=== PATIENT | female | born 1995 | race Two or more races ===

== ENCOUNTER 2024-04-30 07:57 | Inpatient (IN) | payer OTHER ==
[2024-04-30] MEDS: ELECTROLYTE-148 SOLN 1,000 ML IV SCH ×2 (09:30→16:00)
[2024-04-30 09:43] LABS: BASO % 0.3 % (0-2.0); EOS % 2.4 % (0-4.5); HEMATOCRIT 36.4 % (32.4-45.2); HEMOGLOBIN 12.5 GM/dL (10.7-15.3); LYMPH % 18.6 % (8-40); MCHC 34.3 g/dl (32.0-36.0); MEAN CELL VOLUME 87.6 fl (80-96); MEAN PLT VOLUME 8.8 fl (7.5-11.1); MONO % 8.4 % (3.8-10.2); NEUT % 70.3 % (42.8-82.8); PLATELET COUNT 185 10^3/uL (134-434); RBC 4.16 M/mm3 (3.60-5.2); WHITE BLOOD COUNT 9.3 K/mm3 (4.0-10.0)
[2024-04-30 09:45] LABS: INR 0.95 (0.83-1.09); PROTHROMBIN TIME (PATIENT) 10.9 SEC (9.7-13.0)
[2024-04-30 09:48] LABS: ACTIVATED PTT 25.6 SECONDS (25.2-36.5)
[2024-04-30] MEDS: OXYTOCIN 30 UNITS in 0.9% NS 30 UNIT/500 ML INFUS.BAG IVPB SCH (10:00)
[2024-04-30] MEDS ORDERED: OXYTOCIN 30 UNITS in 0.9% NS 30 UNIT/500 ML INFUS.BAG IVPB ONE (10:02)
[2024-04-30 10:20] VITALS: BMI 32.4
[2024-04-30 10:49] LABS: CREATININE 0.4 mg/dL (0.55-1.3); POTASSIUM 4.3 mmol/L (3.5-5.1)
[2024-04-30 10:50] LABS: CALCIUM 9.1 mg/dL (8.5-10.1)
[2024-04-30 11:20] LABS: BLOOD UREA NITROGEN 10.7 mg/dL (7-18)
[2024-04-30 12:14] LABS: SYPHILIS W/ RPR CONF NON-REACTIVE (NONREACTIVE)
[2024-04-30 12:41] LABS: HIV INTERPRETATION NEGATIVE (NEGATIVE)
[2024-04-30] MEDS ORDERED: PROMETHAZINE HCL 25 MG/1 ML VIAL IVPB ONE (13:36)
[2024-04-30] MEDS ORDERED: NALOXONE HCL 0.4 MG/ML VIAL IVPUSH PRN (14:56)
[2024-04-30] MEDS ORDERED: FENTANYL/BUPIVACAINE/NS/PF - PCEA - 50 ML DISP.SYRIN EP ONE ×3 (15:05→22:13)
[2024-04-30] MEDS: FENTANYL/BUPIVACAINE/NS/PF - PCEA - 50 ML DISP.SYRIN EP SCH (15:30)
[2024-04-30] MEDS ORDERED: OXYTOCIN 20 UNITS in 0.9% NS 20 UNIT/1,000 ML INFUS.BAG IV ONE (23:43)
[2024-05-01] MEDS ORDERED: BISACODYL 10 MG SUPP.RECT RC PRN (00:05)
[2024-05-01] MEDS ORDERED: WITCH HAZEL 50% (TUCKS) 40 PAD/JAR PAD TP PRN (00:05)
[2024-05-01] MEDS ORDERED: oxyCODONE HCL 5 MG TABLET PO PRN (00:05)
[2024-05-01] MEDS ORDERED: METHYLERGONOVINE MALEATE 0.2 MG/1 ML AMP IM PRN (00:05)
[2024-05-01] MEDS: BUTORPHANOL TARTRATE 1 MG/ML VIAL IVPB ONE (03:40)
[2024-05-01] MEDS: OXYTOCIN 20 UNITS in 0.9% NS 20 UNIT/1,000 ML INFUS.BAG IV SCH (03:45)
[2024-05-01 06:47] LABS: BASO % 0.3 % (0-2.0); EOS % 0.1 % (0-4.5); HEMATOCRIT 34.9 % (32.4-45.2); HEMOGLOBIN 11.8 GM/dL (10.7-15.3); MCH 29.7 pg (25.7-33.7); MCHC 33.9 g/dl (32.0-36.0); MEAN CELL VOLUME 87.4 fl (80-96); MEAN PLT VOLUME 8.4 fl (7.5-11.1); MONO % 5.6 % (3.8-10.2); PLATELET COUNT 195 10^3/uL (134-434); RBC 3.99 M/mm3 (3.60-5.2); RDW 14.6 % (11.6-15.6); WHITE BLOOD COUNT 18.2 K/mm3 (4.0-10.0)
[2024-05-01] MEDS: PRENATAL VITAMINS W/ FOLIC ACID TABLET (FP) PO SCH (10:02)
[2024-05-01] MEDS: IBUPROFEN 600 MG TABLET (FP) PO PRN (10:02)
[2024-05-01] MEDS: FERROUS SO4 325 MG TABLET (FP) PO SCH (10:02)
[2024-05-01] MEDS: BENZOCAINE 20% 57 GM BOTTLE TP PRN (10:05)
[2024-05-01] MEDS: DIPHTH,PERTUSS(ACELL),TET 0.5 ML DISP.SYRIN IM ONE (12:23)
[2024-05-01] MEDS: ACETAMINOPHEN 325 MG TABLET (FP) PO PRN (15:35)
[2024-05-01] MEDS: BENZOCAINE 28 GM HEMORRHOIDAL OINTMENT TP PRN (21:23)
[2024-05-02] MEDS: CEFAZOLIN SODIUM 2 GM in DEXTROSE 5%-WATER 100 ML IVPB SCH (11:53)
[2024-05-02] MEDS: ACETAMINOPHEN 325 MG TABLET (FP) PO PRN (12:08)
[2024-05-02] MEDS: ACETAMINOPHEN 325 MG TABLET (FP) PO SCH (12:25)
[2024-05-03] MEDS: SENNOSIDES/DOCUSATE COMBO (SENNA PLUS) TABLET (UD) PO PRN (04:10)
[2024-05-03 07:26] LABS: BASO % 0.2 % (0-2.0); EOS % 0.8 % (0-4.5); HEMATOCRIT 31.5 % (32.4-45.2); HEMATOCRIT 31.6 % (32.4-45.2); HEMOGLOBIN 10.7 GM/dL (10.7-15.3); MCH 29.8 pg (25.7-33.7); MCH 29.9 pg (25.7-33.7); MCHC 33.9 g/dl (32.0-36.0); MEAN CELL VOLUME 87.7 fl (80-96); MEAN CELL VOLUME 88.2 fl (80-96); MEAN PLT VOLUME 8.5 fl (7.5-11.1); MEAN PLT VOLUME 8.8 fl (7.5-11.1); MONO % 7.5 % (3.8-10.2); NEUT % 81.5 % (42.8-82.8); PLATELET COUNT 156 10^3/uL (134-434); PLATELET COUNT 159 10^3/uL (134-434); RBC 3.58 M/mm3 (3.60-5.2); RBC 3.59 M/mm3 (3.60-5.2); RDW 14.7 % (11.6-15.6); RDW 14.9 % (11.6-15.6); WHITE BLOOD COUNT 14.1 K/mm3 (4.0-10.0)
[2024-05-03 08:55] VITALS: BP 104/68; PULSE 74; RESP 16; TEMP 98.5
== END 2024-05-03 11:30 | disposition home or self-care (01) | DRG 807 ==
LOC: JLDR 07:57 → J3W 05-01 02:18
PROVIDERS: ADMIT Obstetrics & Gynecology; ATTEND Obstetrics & Gynecology
PROC: 10E0XZZ Delivery of Products of Conception, External Approach (ICD-10-PCS; principal; 2024-05-01)
PROC: 0W8NXZZ Division of Female Perineum, External Approach (ICD-10-PCS; 2024-05-01)
DX: O48.0 Post-term pregnancy (principal); Z37.0 Single live birth; O69.81X0 Labor and delivery complicated by cord around neck, without compression, not applicable or unspecified; Z3A.40 40 weeks gestation of pregnancy
CPT/HCPCS: 36415; 59409; 80048; 85025; 85027; 85610; 85730; 86780; 86803; 86850; 86900; 86901; 87389; 90715